=== PATIENT | male | born 1985 | race Caucasian/White ===

== ENCOUNTER 2021-10-02 03:21 | Emergency (ER) | payer BC ==
[~2021-10-02] VITALS: Ht 177.8 cm; Wt 131.9 kg
[2021-10-02] MEDS ORDERED: PRED20TA PO (03:51)
[2021-10-02] MEDS ORDERED: ORPH-16 PO (03:51)
--- NOTE | 2021-10-02 03:51 | PHYS DOC ---
Past History Past Medical History: No Pertinent History Additional Past Surgical Histo: Left knee torn meniscus arthroscopy Smoking: Quit Less Than 1 Year Alcohol Use: Rarely Drug Use: None General Adult EDM: Chief Complaint: BACK PAIN - NO INJURY HPI: HPI: 36-year-old male presents with report of neck pain with radiation down to his shoulders x2 weeks. Patient reports numbness and tingling in his hands that is intermittent in nature. Denies known trauma. Denies fever or chills. Patient reports he has not been taking any medication to try to help with the symptoms. Patient reports pain significant enough tonight that he is unable to sleep and therefore presents to the ER for further evaluation. Patient reports he has not followed with his PCP regarding this. Review of Systems: Review of Systems: Constitutional: Denies fever or chills Eyes: Denies redness or eye pain HENT: Denies nasal congestion or sore throat Respiratory: Denies cough or shortness of breath Cardiovascular: Denies chest pain or palpitations GI: Denies abdominal pain, nausea, or vomiting : Denies dysuria or hematuria Musculoskeletal: Reports neck and shoulder pain Integument: Denies rash or skin lesions Neurologic: Denies headache, focal weakness or sensory changes reports some numbness and tingling in his hands that is intermittent in nature Complete systems were reviewed and found to be within normal limits, except as documented in this note. Physical Exam: PE: Constitutional: Well developed, well nourished, appears uncomfortable, non-toxic appearance HENT: Normocephalic, atraumatic Eyes: PERRL, EOMI, conjunctiva normal, no discharge Neck: Limited range of motion, no midline tenderness, bilateral paraspinal tenderness noted supple Lungs & Thorax: No respiratory distress, equal chest rise and fall Skin: Warm, dry, no erythema, no rash Back: No midline tenderness, upper thoracic bilateral paraspinal tenderness no CVA tenderness Extremities: No tenderness, ROM intact, no edema, bilateral radial pulses +2 Neurologic: Alert and oriented X 3, normal motor function, normal sensory function, no focal deficits noted Psychologic: Affect normal, judgment normal EKG: EKG: [] Radiology/Procedures: Radiology/Procedures: [] Heart Score: C/O Chest Pain: N/A Course & Med Decision Making: Course & Med Decision Making Patient presents with HPI and physical exam concerning for cervical radiculopathy. Denies known trauma. No midline spinal tenderness appreciated. Symptomatic treatment provided. Ice applied. Patient stable for discharge with outpatient follow-up with PCP/pain management. Pain management referral provided. Discussed findings and plan with patient, who acknowledges understanding and agreement. Nena Disclaimer: Nena Disclaimer: This electronic medical record was generated, in whole or in part, using a voice recognition dictation system. Departure Departure: Impression: Primary Impression: Cervical radiculopathy Disposition: HOME / SELF CARE / HOMELESS Condition: STABLE Referrals: PCPJUDITH (PCP) ARIEL CASEY MD Patient Instructions: Cervical Radiculopathy, [id number] Additional Instructions: Ice area of discomfort 20 minutes on the leave off for next 20 minutes. Repeat several times daily for the next few days. May also introduce heat. Take [id number] ibuprofen and or Tylenol for pain or discomfort. Scripts Orphenadrine Citrate (ORPHENADRINE CITRATE) 100 Mg Tablet.er 1 TAB PO BID PRN for MUSCLE PAIN, #14 TAB Prov: OG SINGH DO 10/02/21 Prednisone (PREDNISONE) 20 Mg Tablet 2 TAB PO DAILY for Neck pain for 4 Days, #8 TAB Start this prescription tomorrow Sunday10/03/21 Prov: OG SINGH DO 10/02/21 OG SINGH DO Oct 02, 2021 03:51
[2021-10-02] MEDS ORDERED: ORPHENADRINE CITRATE 60 MG/2 ML VIAL. IM ONE (04:00)
[2021-10-02] MEDS ORDERED: DEXAMETHASONE 4 MG TABLET PO ONE (04:00)
[2021-10-02] MEDS ORDERED: KETOROLAC 30 MG/ML VIAL. IM ONE (04:00)
[2021-10-02 05:00] VITALS: BP 139/87
== END 2021-10-02 05:15 | disposition home or self-care (01) ==
LOC: ER 03:21
DX: M54.12 Radiculopathy, cervical region (principal); Z87.891 Personal history of nicotine dependence
CPT/HCPCS: 96372; 99284; J1885; J2360; J8540

== ENCOUNTER → 2021-10-06 | Outpatient (CLI) | payer BC ==
[2021-10-02 05:00] VITALS: BP 139/87
[~2021-10-06] MED LIST: ORPH-16 PO; PRED20TA PO
--- NOTE | 2021-10-06 16:58 | RAD ---
XR THORACIC SPINE 3VIEWS DATE: 10/06/2021 3:13 PM INDICATION: THORACIC PAIN, NO KNOWN INJURY COMPARISON: None. FINDINGS: The upper thoracic vertebrae are obscured on the lateral view by overlying soft tissue and osseous st ructures. Bones/Alignment: No evidence of acute compression fracture. No listhesis. Joints: Mild degenerative disc disease. Miscellaneous: None. IMPRESSION: Mild degenerative disc disease Electronically signed by: Garry Bello MD (10/06/2021 4:55 PM) [id number]
== END ==
LOC: RAD 15:04
PROVIDERS: ATTEND Physician Assistant
DX: M51.34 Other intervertebral disc degeneration, thoracic region (principal); M54.2 Cervicalgia
CPT/HCPCS: 72072